=== PATIENT | male | born 1960 | race American Indian/Alaskan Native ===

== ENCOUNTER 2017-01-05 16:49 | Emergency (ER) | payer OTHER ==
--- NOTE | 2017-01-05 17:05 | ED PDOC ---
Arrival/HPI - General Chief Complaint: Upper Extremity Problem/Injury Time Seen by Provider: 01/05/17 16:59 Historian: Patient - History of Present Illness Narrative History of Present Illness (Text): 01/05/17 17:02 56yo male with PMHx of Diabetes in ED for left shoulder pain x 2days. States pain started when he pulled something at work and then it continued as he continued working. states he took Ibuprofen 200mg yesterday without relieve. Pain is constant but worse with abduction or movement of arm. Denies focal weakness, paresthesia, chest pain, SOB, any other complaint. Past Medical History - Provider Review Nursing Documentation Reviewed: Yes - Infectious Disease Hx of Infectious Diseases: None - Cardiac Hx Cardiac Disorders: No - Pulmonary Hx Respiratory Disorders: No - Neurological Hx Neurological Disorder: No - HEENT Hx HEENT Disorder: Yes Other/Comment: glasses - Renal Hx Renal Disorder: No - Endocrine/Metabolic Hx Endocrine Disorders: Yes Hx Diabetes Mellitus Type 2: Yes - Hematological/Oncological Hx Blood Disorders: No - Integumentary Hx Dermatological Disorder: No - Musculoskeletal/Rheumatological Hx Musculoskeletal Disorders: No - Gastrointestinal Hx Gastrointestinal Disorders: No - Genitourinary/Gynecological Hx Genitourinary Disorders: No - Psychiatric Hx Psychophysiologic Disorder: No Hx Substance Use: No - Surgical History Hx Appendectomy: Yes - Anesthesia Hx Anesthesia: Yes Hx Anesthesia Reactions: No Family/Social History - Physician Review Nursing Documentation Reviewed: Yes Family/Social History: Unknown Family HX Smoking Status: Never Smoked Hx Alcohol Use: No Hx Substance Use: No Allergies/Home Meds Allergies/Adverse Reactions: Allergies No Known Allergies Allergy (Verified 01/05/17 16:55) Home Medications: Home Meds Medication Instructions Recorded Confirmed MetFORMIN [glucoPHAGE] 500 mg PO DAILY 01/05/17 01/05/17 SITagliptin [Januvia] 100 mg PO DAILY 01/05/17 01/05/17 Review of Systems - Physician Review All systems were reviewed & negative as marked: Yes - Review of Systems Constitutional: Normal Eyes: Normal ENT: Normal Respiratory: Normal Cardiovascular: Normal Gastrointestinal: Normal Genitourinary Male: Normal Musculoskeletal: Arthralgias (Left shoulder pain) Skin: Normal Neurological: Normal Endocrine: Normal Hemo/Lymphatic: Normal Psychiatric: Normal Physical Exam Vital Signs Reviewed: Yes Vital Signs Temp Pulse Resp BP Pulse Ox 01/05/17 16:58 98.2 F 67 19 163/82 H 100 Temperature: Afebrile Blood Pressure: Normal Pulse: Regular Respiratory Rate: Normal Appearance: Positive for: Well-Appearing, Non-Toxic, Comfortable Pain Distress: None Mental Status: Positive for: Alert and Oriented X 3 - Systems Exam Head: Present: Atraumatic, Normocephalic Pupils: Present: PERRL Extroacular Muscles: Present: EOMI Conjunctiva: Present: Normal Mouth: Present: Moist Mucous Membranes Neck: Present: Normal Range of Motion Respiratory/Chest: Present: Clear to Auscultation, Good Air Exchange. No: Respiratory Distress, Accessory Muscle Use Cardiovascular: Present: Regular Rate and Rhythm, Normal S1, S2. No: Murmurs Abdomen: Present: Normal Bowel Sounds. No: Tenderness, Distention, Peritoneal Signs Back: Present: Normal Inspection Upper Extremity: Present: NORMAL PULSES, Tenderness (Left proximal shoulder ), Neurovascularly Intact. No: Cyanosis, Edema, Normal ROM (Limited on Abduction up to 70degree), Swelling, Erythema, Temperature Abnormalties, Deformity Lower Extremity: Present: Normal Inspection. No: Edema Neurological: Present: GCS=15, CN II-XII Intact, Speech Normal Skin: Present: Warm, Dry, Normal Color. No: Rashes Psychiatric: Present: Alert, Oriented x 3, Normal Insight, Normal Concentration Medical Decision Making ED Course and Treatment: 01/05/17 17:20 Left shoulder xray - Some calcifications. No acute finding Result was DW the pt. He was placed on a sling and referred to ortho. Advised TRT ED for any new or worsening symptoms - RAD Interpretation Radiology Orders: 01/05/17 16:59 SHOULDER LEFT [RAD] Stat - Medication Orders Current Medication Orders: Discontinued Medications Ketorolac Tromethamine (Toradol) 60 mg IM STAT STA Stop: 01/05/17 17:03 Disposition/Present on Arrival - Present on Arrival Any Indicators Present on Arrival: No History of DVT/PE: No History of Uncontrolled Diabetes: No Urinary Catheter: No History of Decub. Ulcer: No History Surgical Site Infection Following: None - Disposition Have Diagnosis and Disposition been Completed?: Yes Diagnosis: Shoulder sprain Disposition: HOME/ ROUTINE Disposition Time: 17:25 Patient Plan: Discharge Condition: STABLE Discharge Instructions (ExitCare): Shoulder Sprain (ED) Additional Instructions: Follow up with orthopedist Return to ED for any new or worsening symptoms Prescriptions: Naproxen [Naprosyn] 500 mg PO BID #20 tablet traMADol [Ultram] 50 mg PO TID #10 tab Referrals: Grady Aguilar DO [Staff Provider] - Follow up with primary
--- NOTE | 2017-01-05 17:26 | RAD ---
PROCEDURE: Radiographs of the Left Shoulder HISTORY: shoulder pain s/p trauma COMPARISON: No prior. FINDINGS: BONES: Bone alignment and mineralization are normal. There is no acute displaced fracture or bone destruction. There is mild degenerative osteoarthrosis in the acromioclavicular joint. There is moderate degenerative osteoarthrosis in the glenohumeral joint. SOFT TISSUES: There is multifocal lobular calcification superior and lateral to the humeral head. OTHER FINDINGS: None. IMPRESSION: No acute fracture or dislocation. Suspect calcific tendinitis.
[2017-01-06 11:53] VITALS: BP 163/82; PULSE 67; RESP 19; TEMP 98.2; O2SAT 100; BMI 28.2
== END 2017-01-05 17:47 | disposition home or self-care (01) ==
LOC: ED 16:49 → MERGE 16:49 → ED 17:47
DX: S43.402A Unspecified sprain of left shoulder joint, initial encounter (principal); X50.0XXA Overexertion from strenuous movement or load, initial encounter; Y93.89 Activity, other specified; Y92.69 Other specified industrial and construction area as the place of occurrence of the external cause; Y99.8 Other external cause status
CPT/HCPCS: 73030; 96372; 99283; J1885

== ENCOUNTER 2018-07-07 09:42 | Emergency (ER) | payer OTHER ==
[2018-07-07 09:53] VITALS: BMI 25.5
[2018-07-07 10:03] VITALS: RESP 18; TEMP 98.8
[2018-07-07] MEDS ORDERED: Oxycodone/Acetaminophen 5/325 mg Tab PO STA (10:23)
--- NOTE | 2018-07-07 10:23 | ED PDOC ---
Arrival/HPI - General Chief Complaint: Upper Extremity Problem/Injury Historian: Patient - History of Present Illness Narrative History of Present Illness (Text): 07/07/18 10:09 57 y/o male, pmh including DM, nkda, c/o lt. shoulder pain x 4-5 days after w orking and lifting. Aching pain, aggravated by movement, associated with painful movement and stiffness, no joint redness, no fever or chills, no headache or night sweat, no rash, no numbness or tingling, no palpitation, no chest pain or shortness of breath, no other medical or psychological complaints. Past Medical History - Provider Review Nursing Documentation Reviewed: Yes - Infectious Disease Hx of Infectious Diseases: None - Cardiac Hx Cardiac Disorders: No - Pulmonary Hx Respiratory Disorders: No - Neurological Hx Neurological Disorder: No - HEENT Hx HEENT Disorder: Yes Other/Comment: glasses - Renal Hx Renal Disorder: No - Endocrine/Metabolic Hx Endocrine Disorders: Yes Hx Diabetes Mellitus Type 2: Yes - Hematological/Oncological Hx Blood Disorders: No - Integumentary Hx Dermatological Disorder: No - Musculoskeletal/Rheumatological Hx Musculoskeletal Disorders: No - Gastrointestinal Hx Gastrointestinal Disorders: No - Genitourinary/Gynecological Hx Genitourinary Disorders: No - Psychiatric Hx Psychophysiologic Disorder: No Hx Substance Use: No - Surgical History Hx Appendectomy: Yes - Anesthesia Hx Anesthesia: Yes Hx Anesthesia Reactions: No Hx Malignant Hyperthermia: No Family/Social History - Physician Review Nursing Documentation Reviewed: Yes Family/Social History: Unknown Family HX Smoking Status: Never Smoked Hx Alcohol Use: No Hx Substance Use: No Allergies/Home Meds Allergies/Adverse Reactions: Allergies No Known Allergies Allergy (Verified 07/07/18 09:59) Home Medications: Home Meds Medication Instructions Recorded Confirmed SITagliptin [Januvia] 100 mg PO DAILY 01/05/17 07/07/18 Glyburide/Metformin HCl 1 tab PO DAILY 07/07/18 07/07/18 [Glyburide-Metformin 2.5-500 mg] Review of Systems - Review of Systems Constitutional: absent: Fatigue, Fevers Eyes: absent: Vision Changes ENT: absent: Hearing Changes Respiratory: absent: SOB, Cough Cardiovascular: absent: Chest Pain Gastrointestinal: absent: Abdominal Pain, Nausea, Vomiting Musculoskeletal: Arthralgias. absent: Back Pain, Neck Pain, Myalgias Skin: absent: Rash, Pruritis, Skin Lesions Neurological: absent: Headache, Dizziness Psychiatric: absent: Anxiety, Depression Physical Exam Vital Signs Reviewed: Yes Vital Signs Temp Pulse Resp BP Pulse Ox 07/07/18 09:59 98.8 F 86 18 149/79 98 Temperature: Afebrile Blood Pressure: Normal Pulse: Regular Respiratory Rate: Normal Appearance: Positive for: Well-Appearing Pain Distress: Severe Mental Status: Positive for: Alert and Oriented X 3 - Systems Exam Head: Present: Atraumatic, Normocephalic Pupils: Present: PERRL Extroacular Muscles: Present: EOMI Conjunctiva: Present: Normal Mouth: Present: Moist Mucous Membranes Neck: Present: Normal Range of Motion Respiratory/Chest: Present: Clear to Auscultation, Good Air Exchange. No: Respiratory Distress, Accessory Muscle Use Cardiovascular: Present: Regular Rate and Rhythm, Normal S1, S2. No: Murmurs Abdomen: No: Tenderness, Distention, Peritoneal Signs Back: Present: Normal Inspection Upper Extremity: Present: Normal Inspection, Normal ROM, NORMAL PULSES, Neurovascularly Intact, Capillary Refill < 2s, Other (Lt. shoulder: +ttp on the lateral aspect of the shoulder joint with pain is 100% reproducible, no redness or rash, FROM with pain, sensation intact, motor 5/5, +radial pulse, capillary refill< 2 seconds, neurovascular intact. ). No: Cyanosis, Edema, Deformity Lower Extremity: Present: Normal Inspection, NORMAL PULSES, Normal ROM, Neurovascularly Intact, Capillary Refill < 2 s. No: Edema, Deformity Neurological: Present: GCS=15, CN II-XII Intact, Speech Normal, Motor Func Grossly Intact, Memory Normal Skin: Present: Warm, Dry, Normal Color. No: Rashes Psychiatric: Present: Alert, Oriented x 3, Normal Insight, Normal Concentration Medical Decision Making ED Course and Treatment: 07/07/18 10:27 Strain vs. sprain vs. fracture/dislocation vs. STEMI -ekg -xray -toradol and percocet -Observe and reassess 07/07/18 12:14 -EKG: NSR @ 77 BPM, no ST elevation or depression, no T wave inversion. -Lt. shoulder xray: Stable degenerative change. No acute findings. -Trop after 24 hours is negative -Pt. feels much better, asymptomatic, sling ordered and applied with neurovascular intact. -Discharge home with celebrex, lidoderm, heat compression, sling as needed, follow up with your own pmd and physical therapy/orthopedic withi n2 days, return to the ER for any new or worsening signs or symptoms. - RAD Interpretation Radiology Orders: -Lt. shoulder xray:. Date of service: 07/07/2018 PROCEDURE: Radiographs of the Left Shoulder HISTORY: lt. shoulder pain, stiffness x 5 days COMPARISON: No prior. FINDINGS: BONES: 01/05/2017, left shoulder JOINTS: Osteoarthritic/degenerative changes glenohumeral joint and acromioclavicular joint. These are stable findings. SOFT TISSUES: Normal. OTHER FINDINGS: None. IMPRESSION: Stable degenerative change. No acute findings. Erp Pm: Radiologist - EKG Interpretation EKG Interpretation (Text): 07/07/18 10:46 NSR @ 77 BPM, no ST elevation or depression, no T wave inversion. Interpreted by ED Physician: Yes Type: 12 lead EKG - PA / GROCERY MANAGER / Resident Statement MD/DO has reviewed & agrees with the documentation as recorded. Disposition/Present on Arrival - Present on Arrival Any Indicators Present on Arrival: No History of DVT/PE: No History of Uncontrolled Diabetes: No Urinary Catheter: No History of Decub. Ulcer: No History Surgical Site Infection Following: None - Disposition Have Diagnosis and Disposition been Completed?: Yes Diagnosis: Tendonitis, Osteoarthritis Disposition: HOME/ ROUTINE Disposition Time: 12:16 Patient Plan: Discharge Condition: IMPROVED Additional Instructions: -Discharge home with celebrex, lidoderm, heat compression, sling as needed, follow up with your own pmd and physical therapy/orthopedic withi n2 days, return to the ER for any new or worsening signs or symptoms. Prescriptions: Celecoxib [CeleBREX] 200 mg PO DAILY PRN #20 cap PRN Reason: Other Lidocaine 5% [Lidoderm] 1 patch TOP DAILY PRN #20 patch PRN Reason: Other Referrals: Cecil Hernandez MD [Primary Care Provider] - Follow up with primary Yasmeen Munguia MD [Staff Provider] - Follow up with primary Forms: Kiosked (Bulgarian), WORK NOTE
--- NOTE | 2018-07-07 12:00 | RAD ---
Date of service: 07/07/2018 PROCEDURE: Radiographs of the Left Shoulder HISTORY: lt. shoulder pain, stiffness x 5 days COMPARISON: No prior. FINDINGS: BONES: 01/05/2017, left shoulder JOINTS: Osteoarthritic/degenerative changes glenohumeral joint and acromioclavicular joint. These are stable findings. SOFT TISSUES: Normal. OTHER FINDINGS: None. IMPRESSION: Stable degenerative change. No acute findings.
[2018-07-07 12:09] VITALS: BP 143/75; PULSE 76; O2SAT 96
--- NOTE | 2018-07-07 22:05 | CARD ---
APPROVED REPORT Date of service: 07/07/2018 EKG Measurement Heart [id number] <Conclusion> Normal sinus rhythm Moderate voltage criteria for LVH, may be normal variant Borderline ECG
== END 2018-07-07 12:38 | disposition home or self-care (01) ==
LOC: ED 09:42
DX: M19.012 Primary osteoarthritis, left shoulder (principal); M77.9 Enthesopathy, unspecified; E11.9 Type 2 diabetes mellitus without complications
CPT/HCPCS: 73030; 84484; 93005; 96372; 99285; J1885